=== PATIENT | female | born 1995 | race Caucasian/White ===

== ENCOUNTER 2016-11-01 11:35 | Emergency (ER) | payer BC, OTHER ==
[2016-11-01 12:21] VITALS: BP 105/75
--- NOTE | 2016-11-01 13:20 | UC ---
Complaint Female HPI - HPI Summary HPI Summary: Pt presents with urinary c/o frequency, urgency and dysuria that began two days ago. Pt had 4 tablets of DS Bactrim and took two on10/30 and two on 10/31. Pt has also been taking AZO daily. - History Of Current Complaint Chief Complaint: UCGU Stated Complaint: URINARY Time Seen by Provider: 11/01/16 13:15 Hx Obtained From: Patient Hx Last Menstrual Period: 10/17/16 ?: No Onset/Duration: Sudden Onset, Lasting Days Timing: Constant Severity Initially: Mild Severity Currently: Mild Character: Burning Aggravating Factor(s): Urination Associated Signs And Symptoms: Positive: Negative - Allergies/Home Medications Allergies/Adverse Reactions: Allergies Allergy/AdvReac Type Severity Reaction Status Date / Time No Known Allergies Allergy Verified 11/01/16 12:20 Home Medications: Home Medications DULoxetine DR CAP* [Cymbalta CAP*] 30 mg PO DAILY 11/01/16 [History Confirmed ] Levonorgestrel-Ethinyl Estradi [Seasonique] 1 tab PO BEDTIME 11/01/16 [History Confirmed 11/01/16] Phenazopyridine HCl [Azo Urinary Pain Relief] 95 mg PO DAILY PRN 11/01/16 [ History Confirmed 11/01/16] PMH/Surg Hx/FS Hx/Imm Hx Previously Healthy: Yes - Surgical History Surgical History: Yes Surgery Procedure, Year, and Place: rhinoplasty 08/2016. wisdom teeth - Family History Known Family History: Positive: Cardiac Disease - Social History Alcohol Use: Occasionally Substance Use Type: None Smoking Status (MU): Never Smoked Tobacco Review of Systems Constitutional: Negative Skin: Negative Eyes: Negative ENT: Negative Respiratory: Negative Cardiovascular: Negative Gastrointestinal: Negative Genitourinary: Dysuria, Frequency, Urgency Motor: Negative Neurovascular: Negative Musculoskeletal: Negative Neurological: Negative Psychological: Negative All Other Systems Reviewed And Are Negative: Yes Physical Exam Triage Information Reviewed: Yes Appearance: Well-Appearing Vital Signs: Initial Vital Signs Temp 98.3 F 11/01/16 12:15 Pulse 88 11/01/16 12:15 Resp 17 11/01/16 12:15 BP 105/75 11/01/16 12:15 Pulse Ox 100 11/01/16 12:15 Vital Signs Reviewed: Yes Neck exam: Normal Respiratory Exam: Normal Respiratory: Positive: No respiratory distress Cardiovascular Exam: Normal Abdominal Exam: Normal Musculoskeletal Exam: Normal Neurological Exam: Normal Psychological Exam: Normal Skin Exam: Normal Complaint Female Dx - Differential Dx/Diagnosis Differential Diagnosis/HQI/PQRI: Urinary Tract Infection Provider Diagnoses: dysuria Discharge - Discharge Plan Condition: Stable Disposition: HOME Prescriptions: Nitrofurantoin Monohyd Macro [Macrobid] 100 mg PO Q12H #10 cap Patient Education Materials: Urinary Tract Infection in Women (ED), Dysuria (ED ) Referrals: [facility] [Outside] Non Staff,Doctor [Primary Care Provider] -
[2016-11-02 13:38] LABS: Urine Bacteria Absent (Absent); Urine Bilirubin Negative (Negative); Urine Glucose Negative (Negative); Urine Nitrite Positive (Negative)
== END 2016-11-01 13:26 | disposition home or self-care (01) ==
LOC: UCCORT 11:35
DX: R30.0 Dysuria (principal)
CPT/HCPCS: 81003; 81015; 87086; 99202; G0463

== ENCOUNTER 2016-12-02 16:02 | Emergency (ER) | payer BC ==
[2016-12-02 16:09] VITALS: BP 118/70
--- NOTE | 2016-12-02 16:17 | UC ---
Complaint Female HPI - HPI Summary HPI Summary: 21 yo female with onset this AM of dysuria/urgency/frequency no f/c no n/v no abd or back pain no vag d/c or itch - History Of Current Complaint Chief Complaint: UCGU Stated Complaint: URINARY COMPLAINT Time Seen by Provider: 12/02/16 16:15 Hx Obtained From: Patient Hx Last Menstrual Period: 10/03, on three month bc Onset/Duration: Gradual Onset, Lasting Hours Timing: Constant Severity Initially: Mild Severity Currently: Mild Associated Signs And Symptoms: Positive: Nausea - Allergies/Home Medications Allergies/Adverse Reactions: Allergies Allergy/AdvReac Type Severity Reaction Status Date / Time No Known Allergies Allergy Verified 12/02/16 16:08 Home Medications: Home Medications buPROPion SR TAB* [Wellbutrin SR TAB*] 150 mg PO DAILY 12/02/16 [History Confirmed 12/02/16] PMH/Surg Hx/FS Hx/Imm Hx Previously Healthy: Yes - Surgical History Surgical History: Yes Surgery Procedure, Year, and Place: rhinoplasty 08/2016. wisdom teeth - Family History Known Family History: Positive: Cardiac Disease - Social History Alcohol Use: Occasionally Substance Use Type: None Smoking Status (MU): Never Smoked Tobacco Review of Systems Constitutional: Negative Skin: Negative Eyes: Negative ENT: Negative Respiratory: Negative Cardiovascular: Negative Gastrointestinal: Negative Genitourinary: Dysuria, Frequency, Urgency Motor: Negative Neurovascular: Negative Musculoskeletal: Negative Neurological: Negative Psychological: Negative All Other Systems Reviewed And Are Negative: Yes Physical Exam Triage Information Reviewed: Yes Appearance: Well-Appearing, No Pain Distress, Well-Nourished Vital Signs: Initial Vital Signs Temp 98.8 F 12/02/16 16:04 Pulse 64 12/02/16 16:04 Resp 16 12/02/16 16:04 BP 118/70 12/02/16 16:04 Pulse Ox 99 12/02/16 16:04 Vital Signs Reviewed: Yes Eyes: Positive: Conjunctiva Clear ENT: Positive: Hearing grossly normal. Negative: Nasal congestion, Nasal drainage, TMs normal, Tonsillar exudate, Trismus, Muffled/hoarse voice Neck: Positive: Supple, Nontender Respiratory: Positive: Lungs clear, Normal breath sounds, No respiratory distress, No accessory muscle use Cardiovascular: Positive: RRR, No Murmur, Pulses Normal Abdomen Description: Positive: Nontender, No Organomegaly, Soft. Negative: CVA Tenderness (R), CVA Tenderness (L) Bowel Sounds: Positive: Present Musculoskeletal: Positive: ROM Intact, No Edema Neurological: Positive: Alert Psychological Exam: Normal Skin Exam: Normal Complaint Female Dx - Differential Dx/Diagnosis Provider Diagnoses: dysuria. ? UTI Discharge - Discharge Plan Condition: Stable Disposition: HOME Prescriptions: Nitrofurantoin Monohyd Macro [Macrobid] 100 mg PO BID #14 cap Phenazopyridine TAB* [Pyridium TAB*] 100 mg PO TID #6 tab Patient Education Materials: Dysuria (ED) Referrals: Non Staff,Doctor [Primary Care Provider] - Additional Instructions: recheck for new or worsening symptoms recheck in 2 days if not better
[2016-12-02] MEDS ORDERED: Nitrofurantoin Macrocrystals* 50 MG CAP PO ONE (16:29)
[2016-12-02] MEDS ORDERED: Phenazopyridine TAB* 100 MG PO ONE (16:31)
--- NOTE | 2016-12-05 08:05 | UC ---
Progress - Progress Note Progress Note: Urine cx is neg. please call to d/c nitrofurantoin and pyridium
== END 2016-12-02 16:40 | disposition home or self-care (01) ==
LOC: UCCORT 16:02
DX: R30.0 Dysuria (principal); R11.0 Nausea
CPT/HCPCS: 81003; 87086; 99212; A9270-GY; G0463